=== PATIENT | female | born 1965 | race Caucasian/White ===

== ENCOUNTER 2017-02-08 10:00 | Emergency (ER) | payer BC ==
[2017-02-08] MEDS ORDERED: ASPIRIN 81 MG TAB.CHEW PO ONE (10:13)
[2017-02-08] MEDS ORDERED: LORazepam 2 MG/ML DISP.SYRIN IV ONE (10:13)
[2017-02-08] MEDS ORDERED: LORazepam 2 MG/ML DISP.SYRIN ONE (10:14)
[2017-02-08 10:25] LABS: Hematocrit 39.1 % (37.0-47.0); Hemoglobin 13.2 gm/dL (12.5-16.0); Mean Cell Volume 86.7 fl (78-100); Mean Corpuscular Hemoglobin 29.3 pg (27-31); Mean Corpuscular Hgb Conc 33.8 g/dl (32-36); Mean Platelet Volume 9.4 fl (6.0-9.5); Neutrophil # 7.7 K/mm3 (1.3-6.0); Neutrophil % 76.3 % (42-75.0); Platelet Count 392 K/mm3 (150-450); Red Blood Count 4.51 M/mm3 (4.2-5.4); Red Cell Distribution Width 13.8 % (11.5-14.0); White Blood Count 10.1 K/mm3 (4.0-10.5)
[2017-02-08] MEDS ORDERED: ASPIRIN 81 MG TAB.CHEW ONE (10:28)
--- NOTE | 2017-02-08 10:32 | ERNOTE ---
Chest Pain/Cardiac HPI Date of Service: 02/08/17 Time Seen by Provider: 02/08/17 10:05 Source: patient Exam Limitations: no limitations Allergies/Adverse Reactions: Allergies thimerosal Allergy (Severe, Verified 02/08/17 10:19) Anaphylaxis codeine Adverse Reaction (Intermediate, Verified 02/08/17 10:19) Other Home Medications: HOME MEDICATIONS Clonidine HCl [Catapres] 0.1 mg PO BID #60 tab 02/08/17 [Last Taken Unknown] Omeprazole 20 mg PO DAILY 02/08/17 [Last Taken Unknown] PARoxetine HCL [Paxil] 20 mg PO DAILY #30 tab 02/08/17 [Last Taken Unknown] Narrative: Pt. comes in with c/o chest pain, intermittent SOB, and severe anxiety and feeling of dread for two weeks that she states is so severe that she cannot function when it occurs. Pt. states that she has a hx of anxiety and stopped her paxil in June and was fine at that time but states thta it got gradually worse. Review of Systems - Review of Systems Constitutional: Present: no symptoms reported. Absent: recent illness, fever, chills, weakness, fatigue, malaise EYE: Present: no symptoms reported ENT: Present: no symptoms reported Respiratory: Present: shortness of breath. Absent: cough, wheezing Cardiology: Present: chest pain, palpitations. Absent: edema Gastrointestinal/Abdominal: Present: no symptoms reported. Absent: nausea, vomiting, diarrhea Genitourinary: Present: no symptoms reported Musculoskeletal: Present: no symptoms reported. Absent: back pain, joint pain Skin: Present: no symptoms reported. Absent: rash, change in color Neurological: Present: no symptoms reported. Absent: headache, dizziness/light- headedness, numbness, tingling All Other Systems: All systems neg except as marked - Patient's Past Medical History Patient History - Medical: No pertinent hx Physical Exam - Physical Exam General Appearance: Present: wd/wn, alert, no apparent distress Head Exam: Present: normal inspection, no evidence of injury Eye Exam: Normal inspection: bilateral, PERRL: bilateral, EOMI: bilateral Ears, Nose, Throat: Present: normal ENT inspection, normal pharynx Neck: Present: normal inspection, nontender. Absent: lymphadenopathy (R), lymphadenopathy (L) Respiratory: Present: no respiratory distress, normal breath sounds, no accessory muscle use, chest nontender, lungs clear Cardiovascular/Chest: Present: no murmur, normal peripheral pulses, tachycardia Gastrointestinal/Abdominal: Present: normal bowel sounds, nontender, nondistended, soft, no organomegaly Back Exam: Present: normal inspection, normal range of motion, no CVA tenderness , no vertebral tenderness Extremity Exam: Present: normal inspection, non-tender, normal range of motion, no edema Neurological Exam: Present: alert, oriented, no motor/sensory deficits, 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 Absent: pallor, skin rash ED Progress - Date and Time Seen: Date and Time: 02/08/17 11:52 Pt. blood pressure I believe is mostly related to anxiety so will prescribe clonidine as it has a nice anxiolytic side effect as well. - Results and Orders Patient's Lab Results:: I have reviewed the patient's lab results. - Vital Signs Patient's Vital Signs:: I have reviewed the patient's vital signs. - EKG EKG: other - sinus tach ith no acute changes EKG read: Reviewed by me EKG Comments: Interp by Dr Sawant - X-Ray X-Ray #1 X-Ray: chest Interpretation: Reviewed by me X-ray Comments: chronic hyperventilation and bronchial wall prominence - Progress/Reassessment Progress:: Improved Departure Clinical Impression: Anxiety HTN (hypertension) Qualifiers: Hypertension type: unspecified Qualified Code(s): I10 - Essential (primary) hypertension - Departure Disposition: Home self-care Condition: Good Instructions: Panic Attacks, [id number], Hypertension, [id number], Form - Blood Pressure Record Sheet, Managing Your High Blood Pressure Additional Instructions: Please follow up with primary provider as planned and start exercise as discussed. Prescriptions: Clonidine HCl [Catapres] 0.1 mg PO BID #60 tab PARoxetine HCL [Paxil] 20 mg PO DAILY #30 tab
[2017-02-08 10:36] LABS: Prothrombin Time (Patient) 10.1 Seconds (9.4-11.4)
[2017-02-08 10:37] LABS: INR 0.97 INR (0.90-1.10); Partial Thrombolplastin Time 29.1 Seconds (24-32)
[2017-02-08 10:42] LABS: ALT 20 U/L (19-67); AST 12 U/L (0-48); Alkaline Phosphatase * 95 U/L (50-170); Anion Gap 14.3 mmol/L (6.8-13.8); BUN/Creatinine Ratio 20.5 (9.0-21.6); Bilirubin, Total 0.2 mg/dL (0.0-1.1); Blood Urea Nitrogen 15 mg/dL (3-23); Ca. Corrected For Albumin 8.5 mg/dL (8.4-10.2); Calcium * 8.8 mg/dL (7.9-10.9); Carbon Dioxide 23.6 mmol/L (24-32.6); Chloride 103 mmol/L (97-106); Glucose * 118 mg/dL (70-110); Potassium 3.9 mmol/L (3.4-4.6); Sodium 137 mmol/L (132-142); Total Protein 7.7 gm/dL (6.2-8.2); Troponin I Less than 0.017 ng/ml (0.00-0.10)
[2017-02-08] MEDS ORDERED: CLONIDINE HCL 0.1 MG TABLET PO ONE (11:09)
[2017-02-08] MEDS ORDERED: CLONIDINE HCL 0.1 MG TABLET ONE (11:11)
[2017-02-08 12:19] VITALS: BP 166/88
== END 2017-02-08 12:14 | disposition home or self-care (01) ==
LOC: ER 10:00
DX: I10 Essential (primary) hypertension (principal); F41.9 Anxiety disorder, unspecified